=== PATIENT | female | born 1980 | race African-American/Black ===

== ENCOUNTER 2016-10-04 19:33 | Emergency (ER) | payer SELFPAY ==
[~2016-10-04] VITALS: Ht 165.1 cm; Wt 72.6 kg
[~2016-10-04 19:33] MED LIST: ALBUTEROL SULF8.5 GM INH; AZITHROMYCIN250 MG ORAL; AZITHROMYCIN500 MG ORAL; BLEPH-105 ML OP; CIPROFLOXACIN500 M2 ORAL; DOXYCYCLINE HY100 M6 PO; FLUCONAZOLE100 MG ORAL; GUAIFENESIN-CO118 M1 ORAL; MUCINEX1200 MG PO; NKM; NORCO 5-325 TA1 EACH ORAL; PROMETHAZINE-C118 M1 ORAL; ROBAXIN500 MG PO; TRAMADOL HCL50 MG ORAL; ZITHROMAX250 MG ORAL
[2016-10-04] MEDS ORDERED: Mylanta II UD 30ml ORAL ONE (20:15)
--- NOTE | 2016-10-04 20:22 | Emergency Room Report ---
History of Present Illness General Chief Complaint: Abdominal Pain Source: Patient Present Illness HPI Patient states that for the past month she has had diarrhea. She states that this is ongoing. She is also having abdominal cramping primarily during diarrheal episodes. She states that over the past 2 days she has had more pain. She states that the pain also is worse with meals and she has had nausea and vomiting. She states the pain is in her lower abdomen. She states that she also feels lightheaded. She was seen by [facility] and told she has a viral illness. She's also told to stay hydrated and drink electrolytes. She states that she feels her symptoms are getting worse. She denies fever or chills. She denies travel. She denies blood in her stool. She denies chest pain or shortness of breath. She has no other complaints. Allergies: Coded Allergies: PENICILLINS (Verified Allergy, Severe, it could kill me, 06/27/13) Patient History Past Medical History: see triage record, asthma Social History: Reports: drug use - THC, smoking Last Menstrual Period: 09/18/16 Now: No Reviewed Nursing Documentation: PMH: Agreed, PSxH: Agreed Nursing Documentation-PMH Past Medical History: No History, Except For Hx Asthma: Yes Hx COPD: Yes - bronchitis Review of Systems All Other Systems: negative except mentioned in HPI Physical Exam Vital Signs Date Time Temp Pulse Resp B/P Pulse Ox O2 Delivery O2 Flow Rate FiO2 10/04/16 19:40 98.1 70 15 130/88 100 Room Air Sp02 EP Interpretation: reviewed, normal General Appearance: no apparent distress, alert, GCS 15, non-toxic Head: normocephalic, atraumatic Eyes: bilateral eye PERRL, bilateral eye normal inspection ENT: hearing grossly normal, normal pharynx, no angioedema, normal voice Neck: full range of motion, supple/symm/no masses Respiratory: chest non-tender, lungs clear, normal breath sounds, speaking full sentences Cardiovascular #1: regular rate, rhythm, no edema Gastrointestinal: normal bowel sounds, soft, non-distended, no guarding, no rebound, other - Mild ttp lower abd diffusely Rectal: deferred Musculoskeletal: back normal, gait/station normal, normal range of motion, non- tender Neurologic: alert, oriented x3, responsive, motor strength/tone normal, sensory intact, speech normal Psychiatric: judgement/insight normal, memory normal, mood/affect normal, no suicidal/homicidal ideation Skin: normal color, no rash, warm/dry, well hydrated Medical Decision Making Diagnostic Impression: Primary Impression: Abdominal pain Additional Impression: Diarrhea ER Course With this patient presents with abdominal pain and diarrhea. This is been going on for over a month. This patient may have colitis versus diverticulitis. Another consideration is electrolyte abnormalities related to diarrhea. Patient's abdominal exam is mildly tender but not acute. She was pending a CT abdomen and pelvis. The patient is turned over to Dr. Flores. Final disposition her CT and final laboratory workup. Anticipate DC home on Cipro and Flagyl Flagyl if findings negative and nonsurgical. Labs Test 10/04/16 20:21 White Blood Count 12.3 K/UL (4.8-10.8) Red Blood Count 4.83 M/UL (4.20-5.40) Hemoglobin 14.3 G/DL (12.0-16.0) Hematocrit 44.1 % (37.0-47.0) Mean Corpuscular Volume 91 FL (80-99) Mean Corpuscular Hemoglobin 29.7 PG (27.0-31.0) Mean Corpuscular Hemoglobin Concent 32.5 G/DL (32.0-36.0) Red Cell Distribution Width 12.7 % (11.6-14.8) Platelet Count 243 K/UL (150-450) Mean Platelet Volume 8.7 FL (6.5-10.1) Neutrophils (%) (Auto) 50.3 % (45.0-75.0) Lymphocytes (%) (Auto) 39.6 % (20.0-45.0) Monocytes (%) (Auto) 5.7 % (1.0-10.0) Eosinophils (%) (Auto) 3.1 % (0.0-3.0) Basophils (%) (Auto) 1.3 % (0.0-2.0) Urine Color Yellow Urine Appearance Clear Urine pH 6.5 (4.5-8.0) Urine Specific [place] 1.015 (1.005-1.035) Urine Protein Negative (NEGATIVE) Urine Glucose (UA) Negative (NEGATIVE) Urine Ketones Negative (NEGATIVE) Urine Occult Blood Negative (NEGATIVE) Urine Nitrite Negative (NEGATIVE) Urine Bilirubin Negative (NEGATIVE) Urine Urobilinogen 1 MG/DL (0.0-1.0) Urine Leukocyte Esterase 1+ (NEGATIVE) Urine HCG, Qualitative Negative Last Vital Signs Date Time Temp Pulse Resp B/P Pulse Ox O2 Delivery O2 Flow Rate FiO2 10/04/16 19:40 98.1 70 15 130/88 100 Room Air JORDY TAYLOR D.O. Oct 04, 2016 20:22
[2016-10-04 20:33] VITALS: BP 117/75
[2016-10-04 20:35] LABS: BASOPHILS % (AUTO) 1.3 % (0.0-2.0); EOSINOPHILS % (AUTO) 3.1 % (0.0-3.0); LYMPHOCYTES % (AUTO) 39.6 % (20.0-45.0); MEAN CORPUSCULAR HEMOGLOBIN 29.7 PG (27.0-31.0); MEAN CORPUSCULAR HGB CONC 32.5 G/DL (32.0-36.0); MEAN CORPUSCULAR VOLUME 91 FL (80-99); MEAN PLATELET VOLUME 8.7 FL (6.5-10.1); MONOCYTES % (AUTO) 5.7 % (1.0-10.0); NEUTROPHILS % (AUTO) 50.3 % (45.0-75.0); PLATELET COUNT 243 K/UL (150-450); RED BLOOD COUNT 4.83 M/UL (4.20-5.40); RED CELL DISTRIBUTION WIDTH 12.7 % (11.6-14.8); WHITE BLOOD COUNT 12.3 K/UL (4.8-10.8)
[2016-10-04 20:46] LABS: APPEARANCE,URINE CLEAR; KETONES,URINE NEGATIVE (NEGATIVE); LEUKOCYTE ESTERASE ,URINE 1+ (NEGATIVE); NITRITE,URINE NEGATIVE (NEGATIVE); PH,URINE 6.5 (4.5-8.0); PROTEIN,URINE NEGATIVE (NEGATIVE); UROBILINOGEN,URINE 1 MG/DL (0.0-1.0)
[2016-10-04 20:55] LABS: ALANINE AMINOTRANSFERASE 12 U/L (3-33); ALBUMIN/GLOBULIN RATIO 1.3 (1.0-2.7); ANION GAP 15 (5-15); ASPARTATE AMINO TRANSFERASE 17 U/L (5-40); CALCIUM 8.9 mg/dL (8.6-10.2); CARBON DIOXIDE 25 mEQ/L (20-30); CHLORIDE 100 mEQ/L (98-107); CREATININE 0.7 mg/dL (0.5-0.9); GLOMERULAR FILTRATION RATE > 60 mL/min (>60); HEMOLYSIS 12; LIPASE 18 U/L (< 60); SODIUM 140 mEQ/L (135-145); TOTAL PROTEIN 6.7 g/dL (6.6-8.7)
[2016-10-04 21:12] LABS: BACTERIA,URINE FEW /HPF; RBC,URINE 0-2 /HPF (0 - 2); SQUAMOUS EPITHELIAL CELL,UR MODERATE /LPF (NONE/OCC); WBC,URINE 0-2 /HPF (0 - 2)
[2016-10-04] MEDS ORDERED: CIPROFLOXACIN500 M2 ORAL (22:07)
[2016-10-04] MEDS ORDERED: METRONIDAZOLE500 MG ORAL (22:07)
[2016-10-04 22:15] VITALS: BP 125/69
--- NOTE | 2016-10-05 09:58 | Diagnostic Imaging Report ---
Indication: Abdominal pain Technique: CT of the abdomen and pelvis utilizing automated exposure control with intravenous contrast. Venous scanning performed. CT dose: Total DLP 1009 mGycm; CTDI vol 19.3 mGy Comparison: None Findings: There is dependent atelectasis in the lung bases. Focal fatty infiltration is noted adjacent to the falciform ligament. Liver is otherwise unremarkable. The adrenal glands, kidneys, spleen and pancreas are unremarkable. No CT evident gallstones are seen. The small bowel loops are normal in caliber. The appendix is not clearly seen but there is no evidence of appendicitis. There is trace free fluid in the pelvis. There is an approximately 2 cm right adnexal hypodense probable ovarian cyst. Uterus is grossly unremarkable. Bladder is grossly unremarkable. The osseous structures demonstrate no acute abnormality. Impression: Trace free fluid in the pelvis. Approximately 2 cm right adnexal hypodense probable ovarian cyst. Correlation with ultrasound recommended as indicated. Other findings as above. The CT scanner at [facility] is accredited by the [employer] and the scans are performed using protocols designed to limit radiation exposure to as low as reasonably achievable to attain images of sufficient resolution adequate for diagnostic evaluation.
--- NOTE | 2016-10-06 21:15 | Cardiology Report ---
APPROVED REPORT EKG Measurement Heart [id number] Sinus bradycardia Otherwise normal ECG
== END 2016-10-04 22:17 | disposition home or self-care (01) ==
LOC: EMR 20:25
DX: N83.202 Unspecified ovarian cyst, left side (principal); R19.7 Diarrhea, unspecified; R11.2 Nausea with vomiting, unspecified; Z88.0 Allergy status to penicillin; F12.90 Cannabis use, unspecified, uncomplicated; Z87.09 Personal history of other diseases of the respiratory system
CPT/HCPCS: 36415; 74177; 80053; 81003; 81025; 83690; 85025; 93005; 96374; 96375; 99284; J2405; Q9967

== ENCOUNTER 2016-11-30 08:57 | Emergency (ER) | payer SELFPAY ==
[~2016-11-30] VITALS: Ht 165.1 cm; Wt 75.3 kg
[~2016-11-30 08:57] MED LIST changes: +METRONIDAZOLE500 MG ORAL
[2016-11-30 09:23] VITALS: BP 129/81
[2016-11-30] MEDS ORDERED: Ketorolac 30mg Inj IM ONE (09:30)
[2016-11-30] MEDS ORDERED: IBUPROFEN600 MG ORAL (10:15)
[2016-11-30] MEDS ORDERED: CYCLOBENZAPRINE10 MG ORAL (10:15)
--- NOTE | 2016-11-30 10:19 | Diagnostic Imaging Report ---
Indication: Left shoulder pain Technique: XRAY SHOULDER MIN 3V LEFT Comparison: None Findings: There is no acute fracture or dislocation. Soft tissues are grossly unremarkable. Bone mineralization is normal. Impression: No acute osseous abnormality.
[2016-11-30 10:23] VITALS: BP 118/76
[2016-11-30 10:25] VITALS: BP 129/81
--- NOTE | 2016-11-30 10:46 | Emergency Room Report ---
History of Present Illness General Chief Complaint: Pain Source: Patient Present Illness HPI 36-year-old female presents ED complaining of left shoulder pain x2 days. Denies trauma. 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 Pain is throbbing, 8/10, worse with lifting shoulder. Radiating through neck. No other aggravating or relieving factors. Denies chest pain or shortness of breath. Denies any other associated symptoms Allergies: Coded Allergies: PENICILLINS (Verified Allergy, Severe, it could kill me, 06/27/13) Patient History Past Medical History: asthma, COPD Past Surgical History: none Pertinent Family History: none Social History: Denies: alcohol use, drug use, smoking Last Menstrual Period: 11/12/16 Now: No Immunizations: UTD Reviewed Nursing Documentation: PMH: Agreed, PSxH: Agreed Nursing Documentation-PMH Past Medical History: No Stated History Hx Asthma: Yes Hx COPD: Yes - bronchitis Review of Systems All Other Systems: negative except mentioned in HPI Physical Exam Vital Signs Date Time Temp Pulse Resp B/P Pulse Ox O2 Delivery O2 Flow Rate FiO2 11/30/16 09:05 96.8 66 16 129/81 98 Room Air Sp02 EP Interpretation: reviewed, normal General Appearance: no apparent distress, alert, GCS 15, non-toxic Head: normocephalic Eyes: bilateral eye PERRL, bilateral eye normal inspection ENT: normal ENT inspection Neck: full range of motion, no bony tend, supple/symm/no masses, tender lateral Respiratory: chest non-tender, lungs clear, normal breath sounds, speaking full sentences Cardiovascular #1: regular rate, rhythm, no edema Gastrointestinal: normal inspection Rectal: deferred Genitourinary: no CVA tenderness Musculoskeletal: decreased range of motion - pain with abduction, tender - L shoulder TTP. Neurologic: alert, oriented x3, responsive, motor strength/tone normal, sensory intact, speech normal Psychiatric: normal inspection Skin: normal inspection Lymphatic: normal inspection Procedures Splinting Splinting : Consent: Verbal Pre-Made Type: sling Pre-Proc Neuro Vasc Exam: normal Post-Proc Neuro Vasc Exam: normal Patient Tolerated: Well Complications: None Medical Decision Making Diagnostic Impression: Primary Impression: Shoulder strain Qualified Codes: S46.912A - Strain of unspecified muscle, fascia and tendon at shoulder and upper arm level, left arm, initial encounter ER Course Hospital Course 36-year-old F presents to ED complaining of L shoulder pain. worse with abduction Differential diagnoses include: Fracture, dislocation, sprain, contusion Clinical course Patient placed on stretcher. After initial history and physical, I ordered pain medications and Xrays of L shoulder Xrays prelim read shows no acute fracture/dislocation. placed in sling. likely shoulder strain Diagnosis - shoulder strain Stable and discharged to home with prescription for Motrin, flexeril. apply heat, keep elevated. weight bear as tolerated. Followup with PMD. Return to ED if symptoms recur or worsen Other X-Ray Diagnostic Results Other X-Ray Diagnostic Results : X-Ray Ordered: L shoulder EP Interpretation: Yes Findings: no fractures, no dislocation, no soft tissue swelling Number of Views: 3 Last Vital Signs Date Time Temp Pulse Resp B/P Pulse Ox O2 Delivery O2 Flow Rate FiO2 11/30/16 10:25 96.8 89 16 129/81 98 Room Air Status: improved Disposition: HOME, SELF-CARE Condition: Stable Scripts Cyclobenzaprine Hcl* (FLEXERIL*) 10 Mg Tablet 10 MG ORAL TID Y for Muscle Spasm, #20 TAB Prov: LUIS LAGUERRE M.D. 11/30/16 Ibuprofen* (MOTRIN*) 600 Mg Tablet 600 MG ORAL Q8H Y for For Pain, #30 TAB 0 Refills Prov: LUIS LAGUERRE M.D. 11/30/16 Departure Forms: Return to Work Return to Work Date: Dec 02, 2016 Work Restrictions: No Heavy Lifting Patient Instructions: Shoulder Sprain LUIS LAGUERRE M.D. Nov 30, 2016 10:46
== END 2016-11-30 10:30 | disposition home or self-care (01) ==
LOC: EMR 09:26
DX: S46.912A Strain of unspecified muscle, fascia and tendon at shoulder and upper arm level, left arm, initial encounter (principal); X50.1XXA Overexertion from prolonged static or awkward postures, initial encounter; Y93.9 Activity, unspecified; Y99.0 Civilian activity done for income or pay; Z88.0 Allergy status to penicillin; J44.9 Chronic obstructive pulmonary disease, unspecified; J45.909 Unspecified asthma, uncomplicated
CPT/HCPCS: 29240; 73030; 96372; 99284; J1885

== ENCOUNTER 2019-02-20 16:25 | Emergency (ER) | payer MEDICAID ==
[~2019-02-20] VITALS: Ht 165.1 cm; Wt 73.0 kg
[~2019-02-20 16:25] MED LIST changes: +CYCLOBENZAPRINE10 MG ORAL; +IBUPROFEN600 MG ORAL
[2019-02-20 16:34] VITALS: BP 151/98
--- NOTE | 2019-02-20 16:50 | NUR ---
ED Nurse Note: Patient presents to ER due sore throat. Regular, unlabored breathing noted. Able to speak clearly. No facial grimacing or guarding noted. Addendum: 02/20/19 at 1736 by LITO Patient able to tolerate oral intake without problem.
[2019-02-20] MEDS ORDERED: CEPHALEXIN500 MG ORAL (16:57)
[2019-02-20] MEDS ORDERED: PROMETHAZINE-D118 ML ORAL (16:57)
[2019-02-20] MEDS ORDERED: IBUPROFEN600 MG ORAL (16:57)
[2019-02-20 17:05] VITALS: BP 151/98
--- NOTE | 2019-02-20 17:05 | NUR ---
Ed Discharge Note: Patient is being discharged from medical care. Awake, alert and oriented x4. After care instructions, including prescriptions were given. Patient verbalized understanding of After care instructions. ID band was removed. Patient ambulated out with all personal belongings with steady gait.
--- NOTE | 2019-02-20 17:06 | NUR ---
ED Nurse Note: Romeo Duke. notified that patient is allergic to PCN with severe reaction. Per Romeo Duke, no changes on prescriptions needed at this time.
--- NOTE | 2019-02-20 18:03 | Emergency Room Report ---
History of Present Illness General Chief Complaint: Sore Throat Source: Patient Present Illness HPI The patient is a 38-year-old female presenting for 1 week of sore throat, fever , chills, and ear pain. She denies any known sick contacts or recent travel. Pain is an 8 out of 10 dull ache to the throat and is worse with swallowing. Radiates to the right ear. She denies any other symptoms including nausea, vomiting, rash, wheezing, shortness of breath, hemoptysis Allergies: Coded Allergies: PENICILLINS (Verified Allergy, Severe, it could kill me, 06/27/13) Patient History Past Medical History: see triage record Pertinent Family History: none Last Menstrual Period: 02/14/19 Now: No Reviewed Nursing Documentation: PMH: Agreed; PSxH: Agreed Nursing Documentation-PMH Past Medical History: No Stated History Hx Asthma: Yes Hx COPD: Yes - bronchitis Review of Systems All Other Systems: negative except mentioned in HPI Physical Exam Vital Signs Date Time Temp Pulse Resp B/P (MAP) Pulse Ox O2 Delivery O2 Flow Rate FiO2 02/20/19 16:34 98.8 18 151/98 96 Room Air 02/20/19 16:34 81 Sp02 EP Interpretation: reviewed, normal General Appearance: no apparent distress, alert, GCS 15, non-toxic Head: normocephalic, atraumatic ENT: hearing grossly normal, no angioedema, normal voice, uvula midline, tonsillar swelling, pharyngeal erythema, tonsillar exudate Neck: full range of motion, supple/symm/no masses Respiratory: chest non-tender, lungs clear, normal breath sounds, no wheezing, speaking full sentences Cardiovascular #1: regular rate, rhythm, no edema Musculoskeletal: back normal, gait/station normal, normal range of motion, non- tender Neurologic: alert, oriented x3, responsive, motor strength/tone normal, sensory intact, speech normal Psychiatric: judgement/insight normal, memory normal, mood/affect normal, no suicidal/homicidal ideation Skin: no rash Lymphatic: adenopathy Medical Decision Making PA Attestation Dr. Flores is my supervising physician. Patient management was discussed with my supervising physician Diagnostic Impression: Primary Impression: Pharyngitis, acute ER Course The patient is a 38-year-old female presenting for 1 week of sore throat, fever , chills, and ear pain Differential diagnosis include but not limited to pharyngitis, sinusitis, AOM, bronchitis, PNA Physical exam: Afebrile. No apparent distress HEENT exam: There is bilateral tonsillar edema, erythema, and exudate. Uvula midline. Moist mucous membranes. There is bilateral cervical lymphadenopathy. Lungs are clear to auscultation bilaterally Skin is warm and dry. No rash The patient will be discharged home with a prescription for keflex, cough medication, and is given ER precautions. Patient will followup with primary care Last Vital Signs Date Time Temp Pulse Resp B/P (MAP) Pulse Ox O2 Delivery O2 Flow Rate FiO2 02/20/19 17:05 18 151/98 96 Room Air 02/20/19 16:34 98.8 81 Status: improved Disposition: HOME, SELF-CARE Condition: Improved Scripts D-Methorphan Hb/Prometh Hcl* (PROMETHAZINE-DM SYRUP*) 118 Ml Syrup 5 ML ORAL Q6H PRN for For Cough, #118 ML 0 Refills Prov: NIXON NEWBY.A. 02/20/19 Cephalexin* (KEFLEX*) 500 Mg Capsule 500 MG ORAL EVERY 12 HOURS, #14 CAP 0 Refills Prov: TERZIANNIXON P.A. 02/20/19 Ibuprofen* (MOTRIN*) 600 Mg Tablet 600 MG ORAL Q8H PRN for For Pain, #30 TAB 0 Refills Prov: TERZIANAVELINAY P.A. 02/20/19 Patient Instructions: Pharyngitis, Sore Throat Additional Instructions: I discussed my findings with the patient. All questions and concerns have been answered. Treatment and medication compliance have been addressed. I advised the patient that they need to follow up with PMD in 3-5 days. Return to ER if pain remains or worsens, cough worsens or remains, you notice blood in your sputum, you notice wheezing, you experience a fever, or if needed for any reason. Patient verbalized understanding of discharge instructions. NIXON NEWBY Feb 20, 2019 18:02
== END 2019-02-20 17:10 | disposition home or self-care (01) ==
LOC: EMR 17:06
DX: J02.9 Acute pharyngitis, unspecified (principal); Z88.0 Allergy status to penicillin; J44.9 Chronic obstructive pulmonary disease, unspecified
CPT/HCPCS: 99282

== ENCOUNTER 2019-02-28 20:20 | Emergency (ER) | payer MEDICAID ==
[~2019-02-28] VITALS: Ht 165.1 cm; Wt 74.8 kg
[~2019-02-28 20:20] MED LIST changes: +CEPHALEXIN500 MG ORAL; +PROMETHAZINE-D118 ML ORAL
[2019-02-28 20:31] VITALS: BP 148/102
--- NOTE | 2019-02-28 20:33 | NUR ---
ED Nurse Note: Patient walked in [facility] from home c/o right ear ache. Per patient she was here at [facility] last week with tonsilitis, and right ear ache. ER MD prescribed her antibiotic and she took all pils, but right ear stil in pain. AAO x4, VSS at this time, skin is dry, warm to touch.
[2019-02-28] MEDS ORDERED: Ciprofloxacin 500mg tab ORAL ONE (20:45)
--- NOTE | 2019-02-28 20:45 | Emergency Room Report ---
History of Present Illness General Chief Complaint: Earache Source: Patient Present Illness HPI Patient presents with right ear pain. She was treated on February 20 for pharyngitis and right ear pain with Keflex. She continues to have pain in the right ear. In addition when she touches the ear there is tenderness. She hears clicking when she chews in the right ear. She feels pressure. The pain is rated 7/10. She has been taking Motrin 800 mg. The last dose was 6 hours ago. Been helping slightly. She denies fevers or chills. The sore throat has resolved. No chest pain, palpitations, nausea, vomiting, diarrhea, dysuria, abdominal pain , shortness of breath, depression, visual changes, headache. 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 Period: 01/16 Now: No Reviewed Nursing Documentation: PMH: Agreed; PSxH: Agreed Nursing Documentation-PMH Hx Asthma: Yes Hx COPD: Yes - bronchitis Review of Systems All Other Systems: negative except mentioned in HPI Physical Exam Vital Signs Date Time Temp Pulse Resp B/P (MAP) Pulse Ox O2 Delivery O2 Flow Rate FiO2 02/28/19 20:22 98.2 73 17 148/102 (117) 96 Room Air Sp02 EP Interpretation: reviewed, normal General Appearance: well appearing, no apparent distress, GCS 15 Head: normocephalic, atraumatic Eyes: bilateral eye PERRL, bilateral eye other - Pterygium bilaterally ENT: normal pharynx, no angioedema, normal voice, moist mucus membranes, other - Right TM with bulging and erythema. Canal is somewhat swollen and erythematous. There is pinna tenderness with movement. No mastoid tenderness. Neck: full range of motion, supple Respiratory: chest non-tender, lungs clear, normal breath sounds, no respiratory distress, speaking full sentences Cardiovascular #1: regular rate, rhythm Cardiovascular #2: 2+ radial (R) Gastrointestinal: normal inspection Musculoskeletal: no calf tenderness Neurologic: alert, oriented x3, normal gait, grossly normal Psychiatric: mood/affect normal Skin: no rash Medical Decision Making Diagnostic Impression: Primary Impression: Otitis media Qualified Codes: H66.001 - Acute suppurative otitis media without spontaneous rupture of ear drum, right ear Additional Impression: Otitis externa Qualified Codes: H60.391 - Other infective otitis externa, right ear ER Course Patient presents with right ear pain after treatment with Keflex. Differential includes otitis media, otitis externa amongst others. Exam is consistent with both. As the patient has been allergic and has evidence of otitis externa Cipro and Ciprodex are indicated. The patient is treated with Motrin. Discussed treatment plan with patient. Patient is stable for outpatient observation and treatment. Last Vital Signs Date Time Temp Pulse Resp B/P (MAP) Pulse Ox O2 Delivery O2 Flow Rate FiO2 02/28/19 21:01 98.2 17 148/102 96 Room Air 02/28/19 20:22 73 Status: improved Disposition: HOME, SELF-CARE Condition: Improved Scripts Ciprofloxacin Hcl/Dexameth (CIPRODEX OTIC SUSPENSION) 7.5 Ml Drops.susp 4 DROP RIGHT EAR TWICE A DAY, #10 ML Prov: Devan Bryant MD 02/28/19 Tramadol Hcl* (ULTRAM*) 50 Mg Tablet 50 MG ORAL Q6H PRN for For Pain, #8 TAB 0 Refills Prov: Devan Bryant MD 02/28/19 Chlorpheniramine Maleate (CHLOR-TRIMETON) 4 Mg Tablet 4 MG PO Q6HR PRN for congestion and pressure in ear, #14 TAB Prov: Devan Bryant MD 02/28/19 Ciprofloxacin Hcl* (CIPROFLOXACIN HCL*) 500 Mg Tablet 500 MG ORAL Q12H, #14 TAB 0 Refills Prov: Devan Bryant MD 02/28/19 Devan Bryant MD Feb 28, 2019 20:45
[2019-02-28] MEDS ORDERED: TRAMADOL HCL50 MG ORAL (20:48)
[2019-02-28] MEDS ORDERED: CHLOR-TRIMETON4 MG PO (20:48)
[2019-02-28] MEDS ORDERED: CIPROFLOXACIN500 M2 ORAL (20:48)
[2019-02-28] MEDS ORDERED: CIPRODEX OTIC7.5 M1 RIGHT EAR (20:48)
[2019-02-28 21:01] VITALS: BP 148/102
--- NOTE | 2019-02-28 21:02 | NUR ---
ED Nurse Note: Pt cleared by health care Provider for discharge. DC instructions/prescription was given and explained to pt and verbalized understanding of teachings. All medical deviecs such as ID band removed. Pt is AAO x4, ambulatory and left with all personal belongings.
== END 2019-02-28 21:02 | disposition home or self-care (01) ==
LOC: EMR 20:45
DX: H66.001 Acute suppurative otitis media without spontaneous rupture of ear drum, right ear (principal); H60.391 Other infective otitis externa, right ear; Z88.0 Allergy status to penicillin; J44.9 Chronic obstructive pulmonary disease, unspecified; F17.200 Nicotine dependence, unspecified, uncomplicated
CPT/HCPCS: 99283